=== PATIENT | male | born 1945 | race Caucasian/White ===

== ENCOUNTER 2021-05-26 08:32 | Emergency (ER) | payer MEDICARE, SELFPAY ==
--- NOTE | ~2021-05-26 | CT_ITS ---
EXAMINATION: CT brain wo con EXAM DATE: 05/26/2021 09:13 INDICATION: Dizziness. High blood pressure. TECHNIQUE: Spiral CT of the head was performed without contrast. Axial, coronal and sagittal images were reviewed. The dose-length product (DLP) for this examination was 605.33 mGy-cm. The exposure w as tailored according to patient size, and iterative reconstruction (ASIR) was used as additional dos e reduction technique. There is no prior study for comparison. FINDINGS: There is no acute intraparenchymal hemorrhage. No evidence of intraparenchymal brain mass lesion. No evidence of acute infarction. Please note that initial head CT has limited sensitivity f or small or acute infarctions. There is mild periventricular and subcortical hypodensity, nonspecific but probably related to small vessel ischemic disease. There is ventricular prominence out of prop ortion to sulci, central atrophy versus normal pressure hydrocephalus (clinical triad ataxia/gait dis turbance, dementia, urinary incontinence). There is intracranial carotid arteriosclerosis. There a re no extra-axial collections. There is no mass effect or midline shift. The orbits are unremarkabl e. Soft tissue is unremarkable. The visualized sinuses and mastoid air cells are well aerated. IMPRESSION: 1. Dilated ventricles, Central atrophy vs NPH. 2. No acute intracranial findings. Reviewed, dictated and finalized at location B.
[2021-05-26 08:39] VITALS: BP 165/59; PULSE 47; RESP 20; TEMP 36.9; O2SAT 98
--- NOTE | 2021-05-26 08:44 | ECG_ITS ---
Measurements Intervals [place] Rate: 46 P: 0 PA: 162 QRS: -9 QRSD: 108 T: 21 QT: 487 QTc: 427 Interpretive Statements SINUS BRADYCARDIA WITH SINUS ARRHYTHMIA INCOMPLETE RIGHT BUNDLE BRANCH BLOCK ABNORMAL ECG Electronically Signed On 05-26-2021 9:41:21 CDT by Robert Langford D.O.
[2021-05-26 08:46] VITALS: BP 154/54; PULSE 47
[2021-05-26 08:48] VITALS: BP 171/59; PULSE 50
[2021-05-26 08:50] VITALS: BP 157/58; PULSE 51
[2021-05-26 08:57] LABS: Basophils Absolute Auto 0.1 K/mm3 (0.0-0.1); Basophils Percent Auto 1.1 % (0.2-1.2); Eosinophils Absolute Auto 0.2 K/mm3 (0-0.3); Eosinophils Percent Auto 3.2 % (0-4.4); Hematocrit 41.7 % (42.0-52.0); Hemoglobin 13.8 g/dL (14.0-18.0); Immature Granulocyte Absolute 0.01 K/mm3 (0.00-0.031); Immature Granulocyte Percent A 0.1 % (0-0.5); Lymphocytes Absolute Auto 2.35 K/mm3 (0.9-3.2); Lymphocytes Percent Auto 32.9 % (18.3-44.2); Mean Corpuscular HGB Conc 33.1 g/dl (32-36); Mean Corpuscular Hemoglobin 30.6 pg (26-34); Mean Corpuscular Volume 92.5 fl (80-100); Mean Platelet Volume 11.1 fl (7.4-10.4); Monocytes Absolute Auto 0.7 K/mm3 (0.1-0.6); Monocytes Percent Auto 10.2 % (2.6-8.5); Neutrophils Absolute Auto 3.7 K/mm3 (1.3-6.7); Neutrophils Percent Auto 52.5 % (45.5-73.1); Platelet Count Result 182 k/mm3 (150-375); Red Blood Count 4.51 M/mm3 (4.6-6.20); Red Cell Distribution Width 13.5 % (11.5-14.5); White Blood Count 7.1 K/mm3 (4.5-10.0)
[2021-05-26] MEDS: ONDANSETRON INJ 4 MG/2 ML VIAL IV PUSH (09:06)
[2021-05-26] MEDS: MECLIZINE HCL 25 MG TABLET PO (09:06)
[2021-05-26 09:14] LABS: Anion Gap 9 mmol/L (8-16); Blood Urea Nitrogen 22 mg/dL (9-20); Calcium 9.2 mg/dL (8.4-10.2); Carbon Dioxide 23 mmol/L (22-30); Chloride 105 mmol/L (98-107); Estimated CRCL calculation 67 ml/min; Estimated Glomerular Filt Rate > 60; Glucose 131 mg/dL (65-110); Potassium 4.3 mmol/L (3.4-5.0); Sodium 137 mmol/L (137-145)
--- NOTE | 2021-05-26 09:23 | PC.NURSE ---
Talked to Nargis in lab, added on hepatic and trop I baseline at 09:22
[2021-05-26 09:52] LABS: Alanine Aminotransferase 20 U/L (4-50); Albumin Level 4.2 g/dL (3.5-5.1); Alkaline Phosphatase 65 U/L (38-126); Aspartate Amino Transferase 24 U/L (17-59); Bilirubin,Total 0.8 mg/dL (0.2-1.3)
[2021-05-26 10:00] LABS: Troponin I < 0.012 ng/mL (0.000-0.034)
--- NOTE | 2021-05-26 10:02 | ED.DIZZY ---
HPI - Dizziness General Chief Complaint: Dizziness Stated Complaint: dizziness, htn Time Seen by Provider: 05/26/21 08:35 Source: patient and RN notes reviewed Mode of arrival: ambulatory Limitations: no limitations History of Present Illness HPI Narrative: This is a 75 year old male with history of hypertension who presents for evaluation of dizziness. Patient states he woke up at 615 am with nausea and dizziness. He describes his dizziness as spinning. His symptoms are worse with standing . He denies headache, sinus drainage, chest pain, sob, diarrhea or abdominal pain. He also denies ear ache or tinnitis. He also denies focal weakness, numbness or tingling. Related Data Home Medications Medication Instructions Recorded Confirmed gijviwxl-flz-jwzur acid 0.4 1 tablet PO DAILY 03/10/21 03/10/21 mg-lycopene 300 mcg-lutein 250 mcg tablet omega 1-saa-yhq-fish oil 60 mg-90 1 cap PO DAILY 03/10/21 03/10/21 mg-500 mg capsule Allergies Allergy/AdvReac Type Severity Reaction Status Date / Time No Known Allergies Allergy Verified 03/10/21 09:23 Review of Systems Review of Systems: All systems reviewed & are unremarkable except as noted in HPI and below PMFSH Past Medical History Medical History Benign essential hypertension Erectile dysfunction History of prostate cancer Hx of adenomatous colonic polyps Hyperlipidemia, unspecified Perianal cyst Surgical History Surgical History History of transurethral resection of prostate S/P rotator cuff surgery Family History Family History Mother Family history of anemia Cerebrovascular accident Family history of diabetes mellitus in first degree relative Sibling Family history of anemia Father Acute myocardial infarction Family history of diabetes mellitus in first degree relative Family history of heart disease in male family member before age 55 Other Diabetes mellitus Family history of cardiovascular disease Family history of malignant neoplasm Hypertension Social History Social History Smoking status: Never smoker Alcohol intake: current Substance use: never Gender identity (if verbalized by the patient): Male Exam Narrative: GENERAL: Well-appearing, well-nourished, and in no acute distress. HEAD: Normocephalic, atraumatic EYES: PERRLA and EOMI, conjunctiva clear without discharge EARS: TM's clear bilaterally without erythema or dullness NOSE: Nares clear, no rhinorrhea or epistaxis THROAT:Mucous membranes moist, Oropharynx normal without erythema, exudate, peritonsillar swelling or fluctuance NECK: Supple, without lymphadenopathy or mass RESPIRATORY: No respiratory distress, Airway patent, Respirations non-labored, Clear to auscultation without rales, rhonchi or wheeze HEART: Regular rate and rhythm. No murmur heard. Normal peripheral pulses. ABDOMEN: Soft, nontender, nondistended, normal active bowel sounds. No masses. No rebound or guarding, No organomegaly. EXTREMITIES: No edema, normal strength with full range of motion. SKIN: Warm, dry, normal color without rash NEURO: Alert and oriented x3. CN 2-12 grossly intact. No focal deficits. PSYCH: Normal mood and affect. Neuro: General: no focal motor deficits and CN's II-XI intact bilaterally Cranial nerves: Yes Nystagmus not present Speech: normal speech Gait exam (Neuro): Normal gait present Motor exam (neuro): 5/5 motor strength present throughout Sensory Exam: normal sensation Coordination: mtuudy-yn-jhid test normal Course Reevaluation(s) Reevaluation #1: Patient states he feels much better. He was able to ambulate with steady gait. No focal deficits to [place] ggest central cause of vertigo. I reviewed labs and CT with patient and hi
[2021-05-26] MEDS: SODIUM CHLORIDE 0.9% IV 500 ML 999 ML IV CONT (10:40)
[2021-05-26] MEDS: diazePAM INJ (*CRX) 10 MG/2 ML SYRINGE 2.5 MG IV PUSH (10:40)
[2021-05-26 11:38] VITALS: BP 150/58; PULSE 48; RESP 16; O2SAT 100
--- NOTE | 2021-05-26 11:57 | PC.NURSE ---
Pt feeling much better and ambulated well independently in the hallway. EDP notified.
== END 2021-05-26 12:27 | disposition home or self-care (01) ==
PROVIDERS: Emergency Provider General Practice; PCP Internal Medicine
DX: R42 Dizziness and giddiness (principal); I10 Essential (primary) hypertension; Z85.46 Personal history of malignant neoplasm of prostate; Z86.010 Personal history of colon polyps; E78.5 Hyperlipidemia, unspecified; Z90.79 Acquired absence of other genital organ(s); R00.1 Bradycardia, unspecified; I45.10 Unspecified right bundle-branch block
CPT/HCPCS: 36415; 70450; 80048; 80076; 84484; 85025; 93005; 96361; 96374; 96375; 99284; A9270; J2405; J3360; J7040

== ENCOUNTER 2022-04-25 02:21 | Day surgery (SDC) | payer MEDICARE, SELFPAY ==
[2022-04-11 10:26] VITALS: BMI 35.6
[2022-04-25 07:47] VITALS: BP 145/64; PULSE 55; RESP 18; TEMP 36.3; O2SAT 99
[2022-04-25] MEDS: LACTATED RINGERS 1,000 ML 150 ML IV CONT (07:56)
--- NOTE | 2022-04-25 08:38 | PM.HPGS ---
History of Present Illness History of Present Illness Consent: Risks, benefits, and alternatives have been discussed and questions answered. Patient agrees to proceed with procedure. Chief complaint: neoplasm screening Narrative: Porsche Gray is a 76 year old male with history of colon polyps, due to have another colonoscopy Review of Systems Constitutional: Constitutional: Denies headache(s) and Denies weakness Eyes: Eyes: Denies blurry vision ENT: Reports Normal hearing present, Denies headache(s) and Denies neck pain Cardiovascular: Cardiovascular: Denies chest pain and Denies dyspnea Respiratory: Respiratory: Denies dyspnea Gastrointestinal: Gastrointestinal: Reports no additional gastrointestinal complaints Genitourinary: Genitourinary: Denies dysuria Musculoskeletal: Musculoskeletal: Denies neck pain Integumentary/Breasts: Skin/Breast: Denies dry skin Neurologic: Reports Normal hearing present, Denies headache(s) and Denies weakness Psychiatric: Psychiatric: Denies anxiety Endocrine: Endocrine: Denies change in body appearance Hematologic/Lymphatic: Hematologic/Lymphatic: Denies easy bleeding Allergic/Immunologic: Allergic/Immunologic: Denies urticaria PMFSH Past Medical History Medical History (Updated 04/25/22 @ 08:39 by Suman Hammond MD) Benign essential hypertension Colon polyp Erectile dysfunction History of prostate cancer Hx of adenomatous colonic polyps Hyperlipidemia, unspecified Perianal cyst Surgical History Surgical History History of transurethral resection of prostate S/P rotator cuff surgery Family History Family History Mother Family history of anemia Cerebrovascular accident Family history of diabetes mellitus in first degree relative Sibling Family history of anemia Father Acute myocardial infarction Family history of diabetes mellitus in first degree relative Family history of heart disease in male family member before age 55 Other Diabetes mellitus Family history of cardiovascular disease Family history of malignant neoplasm Hypertension Social History Social History Smoking status: Never smoker Second hand tobacco smoke exposure: Yes Alcohol intake: current Drinks per week: 14 Alcohol use details: socially Substance use: never Substance use type: does not use Living arrangements: with family Gender identity (if verbalized by the patient): Male Spiritual care concerns: No Meds Home Medications and Allergies Home Medications Medication Instructions Recorded Confirmed Type sgeoceci-exk-jdedk acid 0.4 1 tablet PO DAILY 03/10/21 04/11/22 History mg-lycopene 300 mcg-lutein 250 mcg tablet (Centrum Silver) omega 7-yhh-bom-fish oil 60 mg-90 1 cap PO DAILY 03/10/21 04/11/22 History mg-500 mg capsule (Fish Oil) rosuvastatin 20 mg tablet See Rx Instructions .Route 10/18/21 04/11/22 Rx .COMPLEX #90 tabs lisinopril 20 See Rx Instructions .Route 02/08/22 04/11/22 Rx mg-hydrochlorothiazide 12.5 mg .COMPLEX #90 tabs tablet sildenafil 100 mg tablet 100 mg PO DAILY PRN sexual 04/24/22 04/25/22 Rx activity #10 tabs Allergies Allergy/AdvReac Type Severity Reaction Status Date / Time No Known Allergies Allergy Verified 04/25/22 07:46 Vital Signs Vital Signs - 24 hr 04/25/22 07:47 Temperature 97.4 F L Pulse Rate 55 L Respiratory Rate 18 Blood Pressure 145/64 H Pulse Oximetry 99 Oxygen Delivery Room Air Exam Const: General: comfortable and no acute distress HENMT: General nose exam: Normal nares present Eyes: General: appearance normal, both eyes and all related structures Neck: Neck: no JVD Resp: Auscultation: clear to auscultation bilaterally Cardio: Rate: regular rate Rhythm: regular rhyth
[2022-04-25 08:53] VITALS: BP 117/57; PULSE 50; RESP 19; O2SAT 96
[2022-04-25 09:03] VITALS: BP 136/69; PULSE 43; RESP 18; O2SAT 96
[2022-04-25 09:13] VITALS: BP 150/72; PULSE 43; RESP 20; O2SAT 99
== END 2022-04-25 09:24 | disposition home or self-care (01) ==
PROVIDERS: PCP Internal Medicine; Visit Provider Internal Medicine Gastroenterology
PROC: 0DJD8ZZ Inspection of Lower Intestinal Tract, Via Natural or Artificial Opening Endoscopic (ICD-10-PCS; CPT 45378; principal; 2022-04-25 09:00)
DX: Z12.11 Encounter for screening for malignant neoplasm of colon (principal); K57.30 Diverticulosis of large intestine without perforation or abscess without bleeding; D12.3 Benign neoplasm of transverse colon; D12.5 Benign neoplasm of sigmoid colon; K64.8 Other hemorrhoids; K62.89 Other specified diseases of anus and rectum; I10 Essential (primary) hypertension; E78.5 Hyperlipidemia, unspecified; Z85.46 Personal history of malignant neoplasm of prostate
CPT/HCPCS: 45385; 88305; J2704; J7120